=== PATIENT | male | born 1960 | race Caucasian/White ===

== ENCOUNTER 2016-08-29 15:03 | Observation (INO) | payer BC, OTHER ==
[2016-08-29] MEDS ORDERED: Sodium Chloride 0.9% 1,000 ML PRIMARY IV ONE (15:26)
[2016-08-29] MEDS ORDERED: NORMAL SALINE 10 ML SYRINGE FLUSH IVP PRN ×2 (15:26→17:08)
[2016-08-29] MEDS ORDERED: Pantoprazole Inj 80 MG in Normal Saline Flush 10 ML IVP ONE (15:28)
[2016-08-29 15:35] LABS: BASOPHILS # (AUTO) 0.04 10*3/UL; BASOPHILS % (AUTO) 0.4 % (0-1); EOSINOPHILS # (AUTO) 0.14 10*3/UL; EOSINOPHILS % (AUTO) 1.4 % (0-8); HEMATOCRIT 39.3 % (42.0-52.0); HEMOGLOBIN 13.3 g/dL (14.0-18.0); LYMPHOCYTES # (AUTO) 2.77 10*3/uL; MEAN CORPUSCULAR HEMOGLOBIN 29.6 PG (27-31); MEAN CORPUSCULAR HGB CONC 33.8 g/dL (33-37); MEAN CORPUSCULAR VOLUME 87.5 FL (80-90); MEAN PLATELET VOLUME 9.9 FL (7.4-12.2); MONOCYTES # (AUTO) 0.85 10*3/UL (0.3-0.8); MONOCYTES % (AUTO) 8.4 % (5-15); NEUTROPHILS # (AUTO) 6.29 10*3/UL; NEUTROPHILS % (AUTO) 62.1 % (50-80); RED BLOOD COUNT 4.49 10^6/uL (4.70-6.10)
[2016-08-29 15:36] LABS: PLATELET MORPHOLOGY COMMENT NORMAL MORPHOLOGY (NORM); RBC MORPHOLOGY COMMENT NORMAL MORPHOLOGY (NORM); WBC MORPHOLOGY COMMENT NORMAL MORPHOLOGY (NORM)
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
[2016-08-29 15:48] LABS: BLOOD UREA NITROGEN 14 mg/dL (7-22); C-REACTIVE PROTEIN 0.9 mg/dL (0.0-0.9); CALCIUM 9.5 mg/dL (8.7-10.7); EST GLOMERULAR FILTRATION > 60 (>60 ml/min/1.73m(2)); MAGNESIUM 1.7 mg/dL (1.6-2.4); SERUM ALBUMIN 4.1 g/dL (3.5-4.8)
[2016-08-29 15:49] LABS: LIPASE 95 IU/L (23-300)
--- NOTE | 2016-08-29 16:39 | DI ---
CT ABD W/CN AND PELVIS W/CN,08/29/2016 3:27 PM: Clinical History: Left upper quadrant pain Previous Exam: None at this facility. Findings: Multiple helically acquired CT images are obtained through the abdomen and pelvis without contrast. T here is a large hiatal hernia with postsurgical changes seen at the hiatus consistent with the prior Dat fundoplication. There is mild diffuse fatty infiltration of the liver. The adrenals, spleen, pancreas and kidneys are unremarkable. There are a few small renal parenchymal stones. There is no free air nor free fluid. The urinary bladder is unremarkable. Impression: Hiatal hernia despite postsurgical changes at the diaphragmatic hiatus which likely represent a prior fundoplication. This is consistent with a failed fundoplication.
[2016-08-29] MEDS ORDERED: ONDANSETRON 4 MG/2 ML VIAL IVP PRN (17:08)
[2016-08-29] MEDS ORDERED: LIDOCAINE W/ SODIUM BICARB 0.5 ML SYR SUBD PRN (17:08)
[2016-08-29] MEDS ORDERED: DEXTROSE 50%-WATER SYRINGE 50 ML SYRINGE IVP PRN (17:10)
[2016-08-29] MEDS ORDERED: DEXTROSE 31 GM GEL PO PRN (17:10)
[2016-08-29] MEDS ORDERED: Insulin Sliding Scale Protocol SUBCUT PRN (17:10)
[2016-08-29] MEDS ORDERED: Glucagon Inj Vial 1 MG/ML VIAL IM PRN (17:10)
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
[2016-08-29] MEDS ORDERED: ZOLPIDEM 10 MG TABLET PO ONE (21:32)
[2016-08-29] MEDS: Pantoprazole Inj 40 MG in Normal Saline Flush 10 ML IVP SCH (21:45)
[2016-08-30 05:51] LABS: BASOPHILS # (AUTO) 0.03 10*3/UL; BASOPHILS % (AUTO) 0.3 % (0-1); EOSINOPHILS # (AUTO) 0.16 10*3/UL; EOSINOPHILS % (AUTO) 1.8 % (0-8); HEMATOCRIT 35.7 % (42.0-52.0); HEMOGLOBIN 12.1 g/dL (14.0-18.0); LYMPHOCYTES # (AUTO) 2.83 10*3/uL; MEAN CORPUSCULAR HEMOGLOBIN 29.7 PG (27-31); MEAN CORPUSCULAR HGB CONC 33.9 g/dL (33-37); MEAN CORPUSCULAR VOLUME 87.5 FL (80-90); MEAN PLATELET VOLUME 10.5 FL (7.4-12.2); MONOCYTES # (AUTO) 0.65 10*3/UL (0.3-0.8); MONOCYTES % (AUTO) 7.3 % (5-15); NEUTROPHILS # (AUTO) 5.12 10*3/UL; NEUTROPHILS % (AUTO) 57.9 % (50-80); RED BLOOD COUNT 4.08 10^6/uL (4.70-6.10)
[2016-08-30 05:56] LABS: PLATELET MORPHOLOGY COMMENT NORMAL MORPHOLOGY (NORM); RBC MORPHOLOGY COMMENT NORMAL MORPHOLOGY (NORM); WBC MORPHOLOGY COMMENT NORMAL MORPHOLOGY (NORM)
[2016-08-30 06:06] LABS: BLOOD UREA NITROGEN 11 mg/dL (7-22); BUN/CREATININE RATIO 15.71 (6-20); CALCIUM 8.8 mg/dL (8.7-10.7); EST GLOMERULAR FILTRATION > 60 (>60 ml/min/1.73m(2))
[2016-08-30] MEDS ORDERED: NORMAL SALINE 10 ML SYRINGE FLUSH IVP PRN (07:47)
[2016-08-30] MEDS ORDERED: LIDOCAINE W/ SODIUM BICARB 0.5 ML SYR SUBD PRN (07:47)
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
[2016-08-30] MEDS ORDERED: LISINOPRIL 20 MG TABLET PO SCH (09:00)
[2016-08-30] MEDS ORDERED: Lactated Ringers 1,000 ML PRIMARY IV ONE ×2 (09:36→13:31)
[2016-08-30] MEDS: Pantoprazole Inj 40 MG in Normal Saline Flush 10 ML IVP SCH (09:38)
[2016-08-30] MEDS ORDERED: EPINEPHrine 1:10,000 (0.1 MG/ML) 1 MG/10 ML SYR ONE ×2 (11:49)
--- NOTE | 2016-08-30 12:04 | GEN.OPNOTE ---
EGD Operative Note Surgery Date: 08/30/16 Preoperative Diagnosis: Upper gastrointestinal bleed Postoperative Diagnosis: Gastritis. Mckeon's esophagus Procedure: Esophagogastroduodenoscopy with biopsy Surgeon: Derrick Najera MD Anesthesia Provider: Feli Najera CRNA Anesthesia Type: MAC Indications: Patient is been passing black stools. Findings: Esophagus: The video EGD scope inserted in the posterior pharynx. Under position to the esophagus. At 15 cm. Patient has circumferential area that looked like it was Mckeon's esophagus. This extended for approximately 10 cm. Biopsies were taken circumferentially in all 4 quadrants. GE Junction : GE junction was approximately 30 cm from incisors Fundus : Scope right flexor on itself revealing patient had a hiatal hernia what appeared to be the entrance of the hiatus patient had what appeared to be acute inflammatory changes of the gastric mucosa Body : Body the stomach appeared be normal Prepyloric : Prepyloric area had no inflammatory changes Small Intestine : First second third portion of duodenum appeared be normal A lubricated flexible upper endoscope was inserted and passed through the esophagus and stomach into the duodenum.
[2016-08-30] MEDS ORDERED: KETOROLAC 30 MG/1 ML VIAL ONE (12:47)
[2016-08-30] MEDS ORDERED: HYDROmorphone 2 MG/1 ML ONE (13:30)
[2016-08-30 16:43] VITALS: RESP 20; TEMP 97.6
--- NOTE | 2016-08-30 16:46 | DCSUMMARY ---
Hospitalization Summary Hospital Course: Final Discharge Diagnosis: Diagnostic Data, Laboratory Data, and Procedures of Signifigance: EGD Operative Note Surgery Date: 08/30/16 Preoperative Diagnosis: Upper gastrointestinal bleed Postoperative Diagnosis: Gastritis. Mckeon's esophagus Procedure: Esophagogastroduodenoscopy with biopsy Surgeon: Derrick Najera MD Anesthesia Provider: Feli Najera CRNA Anesthesia Type: MAC Indications: Patient is been passing black stools. Findings: Esophagus: The video EGD scope inserted in the posterior pharynx. Under position to the esophagus. At 15 cm. Patient has circumferential area that looked like it was Mckeon's esophagus. This extended for approximately 10 cm. Biopsies were taken circumferentially in all 4 quadrants. GE Junction : GE junction was approximately 30 cm from incisors Fundus : Scope right flexor on itself revealing patient had a hiatal hernia what appeared to be the entrance of the hiatus patient had what appeared to be acute inflammatory changes of the gastric mucosa Body : Body the stomach appeared be normal Prepyloric : Prepyloric area had no inflammatory changes Small Intestine : First second third portion of duodenum appeared be normal Laboratory Results 08/29/16 08/30/16 Range/Units 15:33 05:30 WBC 10.12 8.85 (4.8-10.8) 10^3/uL RBC 4.49 L 4.08 L (4.70-6.10) 10^6/uL Hgb 13.3 L 12.1 L (14.0-18.0) g/dL Hct 39.3 L 35.7 L (42.0-52.0) % MCV 87.5 87.5 (80-90) FL MCH 29.6 29.7 (27-31) PG MCHC 33.8 33.9 (33-37) g/dL RDW Std Deviation 42.9 42.5 (39-50) fL RDW Coeff of Muu 13.6 13.7 (11.5-14.5) % Plt Count 245 217 (140-350) 10*3/uL MPV 9.9 10.5 (7.4-12.2) FL Immature Gran % (Auto) 0.3 0.7 (0-5) % Neut % (Auto) 62.1 57.9 (50-80) % Lymph % (Auto) 27.4 32.0 (10-50) % [place] % (Auto) 8.4 7.3 (5-15) % Eos % (Auto) 1.4 1.8 (0-8) % Baso % (Auto) 0.4 0.3 (0-1) % Immature Gran # (Auto) 0.03 0.06 10*3/UL Neut # (Auto) 6.29 5.12 10*3/UL Lymph # (Auto) 2.77 2.83 10*3/uL [place] # (Auto) 0.85 H 0.65 (0.3-0.8) 10*3/UL Eos # (Auto) 0.14 0.16 10*3/UL Baso # (Auto) 0.04 0.03 10*3/UL WBC Morphology Comment Normal morphology Normal morphology (NORM) Plt Morphology Comment Normal morphology Normal morphology (NORM) RBC Morph Comment Normal morphology Normal morphology (NORM) Sodium 138 137 (135-145) meq/L Potassium 4.2 4.1 (3.8-5.2) meq/L Chloride 103 108 (98-112) meq/L Carbon Dioxide 24 22 L (23-33) meq/L Anion Gap 11 7 (5-20) BUN 14 11 (7-22) mg/dL Creatinine 0.7 0.7 (0.70-1.50) mg/dL Estimated GFR > 60 > 60 (>60 ml/min/1.73m(2)) BUN/Creatinine Ratio 20.00 15.71 (6-20) Glucose 133 H 84 (78-110) mg/dL Calculated Osmolality 288.0 281.0 (267-292) mOsm/kg Calcium 9.5 8.8 (8.7-10.7) mg/dL Magnesium 1.7 (1.6-2.4) mg/dL Total Bilirubin 0.4 (0.3-1.2) mg/dL AST 25 (21-57) IU/L ALT 33 (21-72) IU/L Alkaline Phosphatase 59 (38-126) IU/L C-Reactive Protein 0.9 (0.0-0.9) mg/dL Total Protein 6.8 (6.1-8.0) g/dL Albumin 4.1 (3.5-4.8) g/dL Globulin 2.7 (2.50-4.10) g/dL Albumin/Globulin Ratio 1.50 (1.3-2.0) mg/g Amylase 79 (30-110) U/L Lipase 95 (23-300) IU/L History and Physical pertinent to Admission: Course of Hospitalization: Is a very nice 56-year-old gentleman with past medical history of diabetes comes in with some dark stools this also happened in the in the past his hemoglobin didn't drop much as nausea and vomiting abdominal pain resolved he had an EGD today which just revealed the above findings with the some chronic gastritis and biopsies were taken for possible Mckeon's esophagus he will be discharged home in stable and improved condition and put on Protonix 40 twice a day and follow-up with Dr. patrick Liu as an outpatient for possible colonoscopy On the date of discharge, the patient was examined: Gen.: No acute distress, alert, nontoxic Heart: Regular rate and rhythm, no murmurs, clicks, gallops, or rubs Lungs: Clear to auscultation bilaterally, breathing is nonlabored Abdomen/GI: Normal tones on auscultation, soft, nontender, nondistended Musculoskeletal/extremities: No clubbing, cyanosis, or edema Vitals reviewed and are listed below Assessment and Plan: 1. As per discharge assessments above 2. Disposition: Home 3. Condition on discharge, stable and improved. 4. Diet: regular diet 5. Activities: resume normal activities 6. Follow-Up: 1. PCP 2. 7. Medications at the Time of Discharge: Home Medications Medication Instructions Recorded Confirmed Type Glipizide 1 tab PO BID tab 03/22/14 08/29/16 History Lisinopril 1 tab PO DAILY tab 03/22/14 08/29/16 History Pravastatin Sodium 1 tab PO DAILY tab 03/22/14 08/29/16 History Sitagliptin Phos/Metformin HCl 1 tab PO BID tab 03/22/14 08/29/16 History [Janumet 50-1,000 mg Tablet] Dulaglutide [Trulicity] 0.75 mg SUBCUT WEEKLY 08/29/16 08/29/16 History Pantoprazole Sodium [Protonix] 40 mg PO BID #60 tablet 08/30/16 Rx 8. Time, care, counseling and coordination of care for this discharge is greater than 30 minutes. Exam - Vitals Vital Signs: Vital Signs Temperature 97.6 F Temperature Source Temporal Artery Scan Pulse Rate [Pulse Oximeter 94 Right] Pulse Rate 87 Respiratory Rate 20 Blood Pressure [Left Arm] 139/94 Blood Pressure 136/82 Pulse Ox 97 Oxygen Delivery Method Room Air Height 5 ft 9 in Weight 89.358 kg Patient Problems - Patient Problem List (1) Upper GI bleed Current Visit: Yes Status: Acute (2) Diabetes Current Visit: Yes Status: Acute Qualifiers: Diabetes mellitus type: type 2
[2016-08-30] MEDS ORDERED: ACETAMINOPHEN 500 MG TABLET PO ONE (16:49)
== END 2016-08-30 17:15 | disposition home or self-care (01) ==
LOC: ER 15:03 → MED/SURG 17:07 → OPS 08-30 11:01 → MED/SURG 08-30 12:06
PROVIDERS: ADMIT Internal Medicine; ATTEND Surgery
DX: K92.2 Gastrointestinal hemorrhage, unspecified (principal); E11.9 Type 2 diabetes mellitus without complications; K22.70 Barrett's esophagus without dysplasia
CPT/HCPCS: 36415; 43235; 74177; 80048; 80053; 82150; 82948 ×2; 83690; 83735; 85025 ×2; 86140; 96374; 99284 ×2; J1885; J2704; J1170; J3490; J7030; J7120